=== PATIENT | female | born 1975 | race American Indian/Alaskan Native ===

== ENCOUNTER → 2025-02-04 | Outpatient (CLI) | payer MEDICAID, SELFPAY ==
--- NOTE | 2025-02-04 15:47 | XR_ITS ---
Examination: Foot, left, 3 views Technique: AP, oblique, lateral views foot, 3 views Date and time of exam: February 04, 2025 1555 hours INDICATIONS: Left foot pain beginning 5 minutes ago, ankle surgery 2014 FINDINGS: Moderate bunion deformity Moderate osteoarthritis first metatarsophalangeal joint No acute fracture No cortical bone destruction No erosive arthritis IMPRESSION: Moderate bunion deformity Moderate osteoarthritis first metatarsophalangeal joint
--- NOTE | 2025-02-04 15:47 | XR_ITS ---
Examination: Tibia-Fibula, left , 2 views Technique: Tibia-fibula AP lateral 2 views Date and time of exam: February 04, 2025, 1555 hours INDICATIONS: Ankle surgery 2014, tibiofibular pain 5 months FINDINGS: Healed fracture medial malleolus Healed fracture distal fibular shaft No acute fracture No cortical bone destruction IMPRESSION: Healed fractures as above No cortical bone destruction No acute fracture
== END | disposition home or self-care (01) ==
PROVIDERS: Referring Provider Nurse Practitioner Family; Visit Provider Nurse Practitioner Family
DX: M79.605 Pain in left leg (principal); M79.672 Pain in left foot; Z87.81 Personal history of (healed) traumatic fracture; T79.A22S Traumatic compartment syndrome of left lower extremity, sequela
CPT/HCPCS: 73590; 73630